=== PATIENT | female | born 1960 | race Caucasian/White ===

== ENCOUNTER 2016-07-19 18:47 | Emergency (ER) | payer BC ==
[~2016-07-19] VITALS: Ht 167.6 cm; Wt 88.0 kg
--- NOTE | ~2016-07-19 | EKG ---
[address] [place] [address] ELECTROCARDIOGRAM REPORT Name: NATIVIDAD TORRES [id number] Admission: 07/19/16 Attend Phys: Discharge: 07/19/16 Date of : 62 Report #: [id number] THIS REPORT FOR: //name// [facility] ED Test Date: 2016-07-19 Test Time: 18:52:42 Pat Name: NATIVIDAD TORRES Department: Room: Gender: F General Internal Medicine Doctor: : 1960 Requested By: Trace Bell Order Number: [id number] MD: Royal Handy Measurements Intervals [place] Rate: 72 P: 65 OR: 139 QRS: 0 QRSD: 102 T: 16 QT: 389 QTc: 426 Interpretive Statements Sinus rhythm Nonspecific ST segment abnormality No previous ECG available for comparison Electronically Signed On 07-20-2016 8:33:49 CDT by Royal Handy [email or web address] <ELECTRONICALLY SIGNED> By: Royal Handy MD, [facility] 07/20/16 0833 1852 51 Royal Handy MD, FACC /EPI
[~2016-07-19 18:47] MED LIST: BUSPIRONE PO; COUMADIN 1MG TAB1 M1 PO; LEXAPRO 10 MG T10 MG PO; LOVENOX40 MG/0.4 SQ; NORCO 5-325 TA1 EACH PO; NORVASC5 M1 PO; PROTONIX40 M1 PO; VITAMIN D1000 UNI1 PO; WELLBUTRIN XL300 MG PO; ZYRTEC10 M2 PO
[2016-07-19 20:04] LABS: HEMATOCRIT 37.6 % (37.0-47.0); HEMOGLOBIN 12.8 gm/dL (12.0-15.0); MCH 29.5 pg (26.0-34.0); MCV 86.7 fL (80.0-100.0); PLATELET COUNT 216 thou/uL (150-400); RBC 4.34 mil/uL (4.20-5.00); RDW 13.2 % (10.5-14.5); WBC 4.5 thou/uL (4.0-11.0)
[2016-07-19 20:09] LABS: MANUAL DIFF YES
[2016-07-19 20:24] LABS: ANION GAP 6 mmol/L (7-16); BUN 17 mg/dL (7-18); CALCIUM 8.9 mg/dL (8.5-10.1); CHLORIDE 104 mmol/L (98-107); CO2 28 mmol/L (21-32); CREATININE 0.9 mg/dL (0.6-1.3); GLUCOSE 90 mg/dL (70-99); POTASSIUM 3.7 mmol/L (3.5-5.1); SODIUM 138 mmol/L (136-145)
[2016-07-19 20:31] LABS: ALBUMIN 3.7 g/dL (3.4-5.0); ALKALINE PHOSPHATASE 139 U/L (46-116); SGOT 13 U/L (15-37); SGPT 24 U/L (30-65); TOTAL BILIRUBIN 0.4 mg/dL (<0.1-1.0); TOTAL PROTEIN 6.5 g/dL (6.4-8.2); TROPONIN-I < 0.04 ng/mL (<0.04-0.07)
[2016-07-19 20:38] LABS: ABSOLUTE NEUTROPHILS 2.2 thou/uL (1.4-8.2); ANISOCYTOSIS 1+; HYPOCHROMASIA SLIGHT; TOTAL CELL COUNT 100
[2016-07-19] MEDS ORDERED: CARAFATE 1 GM TA1 G1 PO (21:09)
== END 2016-07-19 21:22 | disposition home or self-care (01) ==
LOC: ER 18:47
PROVIDERS: Emergency Medicine
DX: R07.9 Chest pain, unspecified (principal); I10 Essential (primary) hypertension; F41.9 Anxiety disorder, unspecified; F32.9 Major depressive disorder, single episode, unspecified; G47.30 Sleep apnea, unspecified; I63.9 Cerebral infarction, unspecified; Z90.89 Acquired absence of other organs; Z90.49 Acquired absence of other specified parts of digestive tract; Z88.2 Allergy status to sulfonamides

== ENCOUNTER → 2016-08-26 | Outpatient (CLI) | payer BC, OTHER ==
[~2016-08-26] VITALS: Ht 167.6 cm; Wt 85.3 kg
[~2016-08-26] MED LIST changes: +CARAFATE 1 GM TA1 G1 PO; +CENTRUM SILVER1 EAC4 PO
--- NOTE | ~2016-08-26 | O ---
[facility] [place] [address] OPERATIVE REPORT Name: NATIVIDAD TORRES Isela Room #[facility] [id number] Admission: 08/26/16 Attend Phys: Cristi Arriaga MD, Discharge: Date of : 62 Report #: [id number] THIS REPORT FOR: //name// CC: Cristi Ortizfrankie Saavedrale DATE OF SERVICE: 08/26/2016 PREOPERATIVE DIAGNOSES: 1. Gastroesophageal reflux disease. 2. History of laparoscopic sleeve gastrectomy. 3. Hypertension. 4. Obstructive sleep apnea. 5. Lumbago. 6. Obesity with a BMI of 30.86. POSTOPERATIVE DIAGNOSES: 1. Gastroesophageal reflux disease. 2. History of laparoscopic sleeve gastrectomy. 3. Hypertension. 4. Obstructive sleep apnea. 5. Lumbago. 6. Obesity with a BMI of 30.86. 7. Hiatal hernia. 8. Esophagitis. 9. Gastritis. PROCEDURE PERFORMED: A thorough diagnostic esophagogastroduodenoscopy (EGD). SURGEON: Cristi Arriaga MD. PRINTING MACHINE MECHANIC: None. ANESTHESIA: Monitored anesthesia care. ESTIMATED BLOOD LOSS: None. COMPLICATIONS: None. SPECIMENS: None. INDICATIONS: The patient is a 56-year-old female who was greater than 6 months status post laparoscopic sleeve gastrectomy for morbid obesity, whereby she has had significant weight loss of 74 pounds thus far. The patient has done exceptionally well from a weight loss standpoint at this time point; however, has been battling significant reflux disease since surgery. At the time of her [facility] [address] [place] [address] OPERATIVE REPORT Name: NATIVIDAD TORRES Room #: REG [facility].#: [id number] Admission: 08/26/16 Attend Phys: Cristi Arriaga MD, Discharge: Date of : 62 Report #: [id number] sleeve gastrectomy, no evidence of a hiatal hernia was seen, however, in light of her ongoing reflux disease, indication was for an EGD today. Intraoperative findings of a small to moderate sized hiatal hernia were seen and photodocumentation was taken and provided to the patient and to the permanent medical record, in addition to esophagitis and gastritis. DESCRIPTION OF PROCEDURE: After explaining the risks, benefits and alternatives of the procedure with the patient in detail in the preoperative holding area and obtaining written consent, the patient was brought to the endoscopy suite supine on her hospital bed. After conducting a thorough timeout procedure verifying correct patient and procedure, the patient was given monitored anesthesia care. Once adequate anesthesia was obtained, her SCDs were hooked up to pneumatic compression device and the Elyssafregorin upper endoscope was used to intubate the oropharynx with ease. This was advanced down into the esophagus where esophagitis was seen in the distal esophagus, but no evidence of Lakhani's changes or ulcerations were seen. The scope was advanced into the gastric sleeve where the pylorus was identified and intubated. The scope was advanced to the second portion of duodenum. Slow and careful withdrawal of the EGD scope showed no evidence of duodenitis, mass, lesions or ulcerations; however, there was evidence of gastritis as well as the aforementioned esophagitis. A retroflexion view of the scope within the gastric lumen did show evidence of a small to moderate sized hiatal hernia. The scope was straightened out. The stomach was fully desufflated and the scope was slowly withdrawn and passed off the field completing the procedure. At the end of the procedure, all instrument, needle and sponge counts were correct. The patient tolerated the procedure without incident, was awakened in the endoscopy suite and transitioned to the recovery room in stable condition with no apparent complications. <ELECTRONICALLY SIGNED> By: Cristi Arriaga MD, FACS 08/27/16 1330 [id number] [id number] Cristi Arriaga MD, FACS /nt
[2016-08-26 07:36] LABS: HEMATOCRIT 40.1 % (37.0-47.0); HEMOGLOBIN 13.6 gm/dL (12.0-15.0)
[2016-08-26 07:47] LABS: INR 2.5; PROTIME 26.3 Seconds (9.3-11.4)
== END ==
LOC: GI 06:55
PROVIDERS: Surgery
DX: K21.0 Gastro-esophageal reflux disease with esophagitis (principal); I10 Essential (primary) hypertension; G47.33 Obstructive sleep apnea (adult) (pediatric); K44.9 Diaphragmatic hernia without obstruction or gangrene; K29.70 Gastritis, unspecified, without bleeding; E66.01 Morbid (severe) obesity due to excess calories; Z68.30 Body mass index [BMI] 30.0-30.9, adult
CPT/HCPCS: 62110; 62900

== ENCOUNTER 2018-02-27 11:43 | Inpatient (IN) | payer BC, OTHER ==
[~2018-02-27] VITALS: Ht 167.6 cm; Wt 81.6 kg
--- NOTE | ~2018-02-27 | EKG ---
[address] [address] ELECTROCARDIOGRAM REPORT Name: NATIVIDAD TORRES Room #: 170-22 ADM IN M.R.#: [id number] Admission: 02/27/18 Attend Phys: Obdulio Vallejo MD Discharge: Date of : 62 Report #: [id number] THIS REPORT FOR: //name// [facility] ED Test Date: 2018-02-27 Test Time: 11:47:42 Pat Name: NATIVIDAD TORRES Department: Room: 170 Gender: F Contract Negotiation Specialist: BLAISE : 1960 Requested By: Randell Hassan Order Number: [id number] MD: Royal Handy Measurements Intervals [place] Rate: 71 P: 38 LA: 139 QRS: 2 QRSD: 105 T: 15 QT: 410 QTc: 446 Interpretive Statements Sinus rhythm Poor R wave progression Compared to ECG 07/19/2016 18:52:42 No significant change was found Electronically Signed On 02-27-2018 17:09:23 CDT by Royal Handy [email or web address] <ELECTRONICALLY SIGNED> By: Royal Handy MD, [facility] 02/27/18 1709 1147 1147 Royal Handy MD, FAC /EPI
--- NOTE | ~2018-02-27 | CATHLAB ---
[facility] [address] [place] [address] INVASIVE PROCEDURE REPORT Name: NATIVIDAD TORRES Room #: 211-P [facility] IN [facility]#: [id number] Admission: 02/27/18 Attend Phys: Obdulio Vallejo MD Discharge: Date of : 62 Date of Service: 03/01/18 1612 Report #: [id number] THIS REPORT FOR: //name// APPROVED REPORT Study performed: 03/01/2018 11:23:44 Patient Details Patient Status: In-Patient Room #: The patient is a 57 year-old female Event Personnel Sukhwinder Torre Neonatal Surgeon, Bryan Hernández RN, Royal Clarke Brown, Roberta Monitor Procedures Performed Left Heart Cath w/LT VGram [id number] LHCLV Indication Dyspnea, Cardiomyopathy, Chest pain Risk Factors Cerebrovascular Disease, Hypertension Procedure Narrative The Right Groin^ was infiltrated with 1% Lidocaine subcutaneous anesthesia. A PINNACLE 4FR Sheath #[id number] sheath was inserted into the RFA 4F^. Coronary angiography was performed using coronary diagnostic catheters. The right coronary system was accessed and visualized with a JR4 catheter. The left coronary system was accessed and visualized with a 4FR JL 5.0 #[id number] catheter. The left ventricle was accessed and visualized with a PIGTAIL catheter. Left ventricular/Aortic Valve gradient assessed via catheter pullback. Hemostasis was obtained with manual pressure following sheath removal without any complications. The patient tolerated the procedure well and there were no complications associated with the procedure. There was no hematoma. Intraoperative Conscious Sedation Sedation start time: 11.59 Case end Time: 12.30 Fentanyl 50 mcg Versed 2 mg Fluoro Time: 2.11 minutes Dose: DAP 2180.40 cGycm2 267 mGy [facility] [address] [place] [address] INVASIVE PROCEDURE REPORT Name: NATIVIDAD TORRES Isela Room #: 211-P [facility] IN ..#: [id number] Admission: 02/27/18 Attend Phys: Obdulio Vallejo MD Discharge: Date of : 62 Date of Service: 03/01/18 1612 Report #: [id number] Contrast Type and Amount: Omnipaque 75 ml Coronary Angiography The patient's coronary anatomy is co- dominant. Diagnostic Cath Left Main Patent vessel, with no flow-limiting lesions. LAD Moderate size caliber vessel, traveling down the anterior wall and wrapping around the apex. Patent vessel. Patent vessel, with no flow-limiting lesions. With no flow-limiting lesions. Diagonal 1 patent vessel, with no flow-limiting lesions. Circumflex Codominant vessel, with no flow-limiting lesions. OM1 Patent vessel, with no flow-limiting lesions. OM2 Patent vessel, with no flow-limiting lesions. Right Coronary Patent vessel, with no flow-limiting lesions. R PDA Patent vessel, with no flow-limiting lesions. Left Ventriculography The left ventricle is normal in size with decreased contractility. The left ventricular ejection fraction is estimated to be 40-45%. Hemodynamics The aortic pressure is 168/89 mmHg with a mean of 119 mmHg. The left ventricular pressure is 204/11 mmHg with a mean of mmHg. The left ventricular end diastolic pressure is 27 mmHg. There was no gradient across the aortic valve upon pullback. Pullback from the left ventricle to the aorta revealed no gradient across the aortic valve. Conclusion 1. Angiographically normal coronary arteries. 2. Codominant system. 3. Nonischemic cardiomyopathy, mild to moderate in severity. 4. Recommend medical therapy and risk factor management. <ELECTRONICALLY SIGNED> By: Sukhwinder Torre MD 03/01/181611 11 11 Sukhwinder Torre MD /INF
--- NOTE | ~2018-02-27 | 2DMMODE ---
[facility] [address] [place] [address] 2 D/M-MODE ECHOCARDIOGRAM Name: NATIVIDAD TORRES Isela Room #: 449-I ADM IN [facility]#: [id number] Admission: 02/27/18 Attend Phys: Obdulio Vallejo MD Discharge: Date of : 62 Date of Service: 02/28/18 1103 Report #: [id number] THIS REPORT FOR: //name// APPROVED REPORT Study performed: 02/28/2018 10:04:56 EXAM: Comprehensive 2D, Doppler, and color-flow Echocardiogram Patient Location: Echo lab Room #: [facility] Status: routine BSA: 1.89 HR: 67 bpm BP: 144/78 mmHg Rhythm: NSR Other Information Study Quality: Good Indications Chest Pain Hypertension/HDD 2D Dimensions RVDd: 29.61 mm IVSd: 9.30 (7-11mm) LVOT Diam: 19.38 (18-24mm) LVDd: 58.97 mm PWd: 8.78 (7-11mm) Ascending Ao: 28.32 (22-36mm) LVDs: 47.15 (25-40mm) Aortic Root: 27.08 mm IVC: 16.00 mm Volumes Left Atrial Volume (Systole) Single Plane 4CH: 73.91 mL Single Plane 2CH: 54.87 mL LA ESV Index: 38.00 mL/m2 Aortic Valve AoV Peak Saleem.: 1.76 m/s AO Peak Gr.: 12.39 mmHg LVOT Max P.55 mmHg LVOT Max V: 1.07 m/s ISAEL Vmax: 1.79 cm2 AI Vmax: 5.46 m/s AI [place]: 3.45 m/s2 AI PHT: 459.17 ms [facility] [address] [place] [address] 2 D/M-MODE ECHOCARDIOGRAM Name: NATIVIDAD TORRES Isela Room #: 449-[facility] IN [facility]#: [id number] Admission: 02/27/18 Attend Phys: Obdulio Vallejo MD Discharge: Date of : 62 Date of Service: 02/28/18 1103 Report #: [id number] Mitral Valve E/A Ratio: 1.4 MV Decel. Time: 174.66 ms MV E Max Saleem.: 1.15 m/s MV A Saleem.: 0.82 m/s MV PHT: 50.65 ms IVRT: 110.73 ms Pulmonary Valve PV Peak Saleem.: 0.80 m/s PV Peak Gr.: 2.59 mmHg Pulmonary Vein P Vein S: 0.66 m/s P Vein A: 0.19 m/s P Vein D: 0.53 m/s P Vein A Dur.: 92.3 msec P Vein S/D Ratio: 1.25 Tricuspid Valve TR Peak Saleem.: 2.22 m/s TR Peak Gr.: 19.76 mmHg PA Pressure: 25.00 mmHg Left Ventricle Left ventricle is dilated. There is global hypokinesis of the left ventricle. There is normal left ventricular wall thickness. Left ventricular systolic function is mild to moderately decreased. LVEF is 40-45%. Right Ventricle The right ventricle is normal size. The right ventricular systolic function is normal. Atria Left atrium is dilated. The right atrium size is normal. Aortic Valve The aortic valve is normal in structure. Mild aortic regurgitation. There is no aortic valvular stenosis. Mitral Valve The mitral valve is normal in structure. Mild to moderate mitral regurgitation. No evidence of mitral valve stenosis. Tricuspid Valve The tricuspid valve is normal in structure. There is trace tricuspid regurgitation. Estimated PAP 25 mmHg. There is no pulmonary hypertension. [address] [place] [address] 2 D/M-MODE ECHOCARDIOGRAM Name: NATIVIDAD TORRES Room #: 449-I [facility] IN [facility]#: [id number] Admission: 02/27/18 Attend Phys: Obdulio Vallejo MD Discharge: Date of : 62 Date of Service: 02/28/18 1103 Report #: [id number] Pulmonic Valve The pulmonary valve is normal in structure. Trace pulmonic regurgitation. Great Vessels The aortic root is normal in size. IVC is normal in size and collapses >50% with inspiration. Pericardium There is no pericardial effusion. <Conclusion> Left ventricle is dilated. Left ventricular systolic function is mild to moderately decreased. The right ventricle is normal size. Left atrium is dilated. The right atrium size is normal. Mild aortic regurgitation. Mild to moderate mitral regurgitation. There is trace tricuspid regurgitation. Estimated PAP 25 mmHg. <ELECTRONICALLY SIGNED> By: Sukhwinder Torre MD 02/28/18 1103 110 02 Sukhwinder Torre MD /INF
[2018-02-27 11:43] VITALS: BP 179/103
[2018-02-27 12:06] LABS: ABSOLUTE NEUTROPHILS 2.7 thou/uL (1.4-8.2); BASOPHILS 1.2 % (0.0-2.0); EOSINOPHILS 1.3 % (0.0-3.0); HEMATOCRIT 37.9 % (37.0-47.0); HEMOGLOBIN 13.2 gm/dL (12.0-15.0); LYMPHOCYTES 43.5 % (24.0-44.0); MCH 30.8 pg (26.0-34.0); MCHC 34.8 g/dL (28.0-37.0); MCV 88.5 fL (80.0-100.0); PLATELET COUNT 289 thou/uL (150-400); RBC 4.28 mil/uL (4.20-5.00); RDW 13.2 % (10.5-14.5); WBC 5.7 thou/uL (4.0-11.0)
[2018-02-27] MEDS ORDERED: VITAMIN B-12500 MCG PO (12:06)
[2018-02-27] MEDS ORDERED: PROBIOTIC1 EAC1 PO (12:06)
[2018-02-27 12:08] LABS: ANION GAP 6 mmol/L (7-16); BUN 13 mg/dL (7-18); CALCIUM 9.4 mg/dL (8.5-10.1); CHLORIDE 104 mmol/L (98-107); CO2 29 mmol/L (21-32); CREATININE 0.9 mg/dL (0.6-1.0); GLUCOSE 97 mg/dL (74-106); SODIUM 139 mmol/L (136-145)
[2018-02-27 12:18] LABS: TROPONIN-I <0.06 ng/mL (<0.06)
[2018-02-27 12:42] LABS: INR 1.2; PROTIME 12.7 Seconds (9.3-11.4)
[2018-02-27] MEDS ORDERED: TRAZODONE HCL100 MG PO (22:03)
[2018-02-27 22:23] VITALS: BP 169/75
[2018-02-27 22:42] VITALS: BP 175/86
[2018-02-28 05:19] VITALS: BP 141/72
[2018-02-28 06:13] LABS: HEMATOCRIT 37.3 % (37.0-47.0); HEMOGLOBIN 12.7 gm/dL (12.0-15.0); MCH 30.4 pg (26.0-34.0); MCHC 34.1 g/dL (28.0-37.0); MCV 89.2 fL (80.0-100.0); RBC 4.19 mil/uL (4.20-5.00); RDW 13.4 % (10.5-14.5)
[2018-02-28 06:43] LABS: ANION GAP 6 mmol/L (7-16); BUN 14 mg/dL (7-18); CALCIUM 9.3 mg/dL (8.5-10.1); CHLORIDE 106 mmol/L (98-107); CHOLESTEROL 236 mg/dL (<200); CO2 31 mmol/L (21-32); CREATININE 0.7 mg/dL (0.6-1.0); GLUCOSE 97 mg/dL (74-106); HDL CHOLESTEROL 61 mg/dL (>40); LDL CHOLESTEROL 135 mg/dL (<100); SODIUM 143 mmol/L (136-145); TC:HDL 3.9 Ratio (Not establshd); TRIGLYCERIDE 203 mg/dL (<150); TROPONIN-I <0.06 ng/mL (<0.06); VLDL 41 mg/dL (<40)
[2018-02-28 07:30] VITALS: BP 158/80
[2018-02-28 14:35] VITALS: BP 155/83
[2018-02-28 21:53] VITALS: BP 157/88
[2018-03-01 13:53] VITALS: BP 105/59
[2018-03-01] MEDS ORDERED: COREG3.125 MG PO (15:55)
[2018-03-01] MEDS ORDERED: COZAAR 25 MG TA25 M1 PO (15:55)
[2018-03-01] MEDS ORDERED: ASPIR 8181 MG PO (15:55)
[2018-03-01] MEDS ORDERED: LIPITOR10 MG PO (15:55)
[2018-03-01 16:46] VITALS: BP 105/59
== END 2018-03-01 17:35 | disposition home or self-care (01) | DRG 287 ==
LOC: ER 11:43 → 4W 14:22 → EROBS 14:22 → 4W 22:26 → SICU 02-28 21:19 → 2N 03-01 13:08 → ENTRNSPT 03-01 17:24 → 2N 03-01 17:35
PROVIDERS: Emergency Medicine; Hospitalist
PROC: 4A023N7 Measurement of Cardiac Sampling and Pressure, Left Heart, Percutaneous Approach (ICD-10-PCS; principal; 2018-03-01)
PROC: B2111ZZ Fluoroscopy of Multiple Coronary Arteries using Low Osmolar Contrast (ICD-10-PCS; principal; 2018-03-01)
PROC: B2151ZZ Fluoroscopy of Left Heart using Low Osmolar Contrast (ICD-10-PCS; principal; 2018-03-01)
DX: R07.89 Other chest pain (principal); I42.9 Cardiomyopathy, unspecified; I10 Essential (primary) hypertension; K21.9 Gastro-esophageal reflux disease without esophagitis; F32.9 Major depressive disorder, single episode, unspecified; F41.9 Anxiety disorder, unspecified; E78.5 Hyperlipidemia, unspecified; G47.30 Sleep apnea, unspecified; F17.210 Nicotine dependence, cigarettes, uncomplicated; Z86.73 Personal history of transient ischemic attack (TIA), and cerebral infarction without residual deficits; Z87.11 Personal history of peptic ulcer disease; Z98.84 Bariatric surgery status; Z90.49 Acquired absence of other specified parts of digestive tract; Z79.01 Long term (current) use of anticoagulants; Z79.899 Other long term (current) drug therapy; Z88.2 Allergy status to sulfonamides; Z82.49 Family history of ischemic heart disease and other diseases of the circulatory system; Z28.21 Immunization not carried out because of patient refusal
CPT/HCPCS: 10045; 15002